=== PATIENT | male | born 1960 | race Asian ===

== ENCOUNTER 2021-04-11 10:16 | Outpatient (REF) | payer OTHER, SELFPAY ==
[2021-04-11 10:22] LABS: MANUAL DIFF FLAG NO
[2021-04-11 10:50] LABS: Basophils Absolute Auto 0.1 X10*3/uL (0.0-0.2); Basophils Percent Auto 1.1 % (0-2); Eosinophils Absolute Auto 0.1 X10*3/uL (0.0-0.4); Eosinophils Percent Auto 1.6 % (0-4); Estimated Average Glucose 166 mg/dL; Hematocrit 44.4 % (42-52); Hemoglobin 14.3 g/dl (14.0-18.0); Hemoglobin A1c % 7.4 %; Imm Gran Abs Auto 0.01 X10*3/uL (0.00-0.03); Imm Gran Pct Auto 0.2 % (0.0-0.4); Lymphocytes Percent Auto 31.7 % (20-40); Mean Corpuscular HGB Conc 32.2 g/dl (31.0-36.0); Mean Corpuscular Hemoglobin 30.2 pg (27.0-33.0); Mean Corpuscular Volume 93.7 fL (80-98); Mean Platelet Volume 10.5 fL (9.4-12.4); Monocytes Absolute Auto 0.5 X10*3/uL (0.1-1.2); Monocytes Percent Auto 8.7 % (2-11); Neutrophils Absolute Auto 3.5 X10*3/uL (2.0-8.3); Neutrophils Percent Auto 56.7 % (45-73); Platelet Count 308 X10*3/uL (160-400); Red Blood Count 4.74 X10*6/uL (4.60-5.80); Red Cell Distribution Width 13.9 % (11.0-16.0); White Blood Count 6.2 X10*3/uL (4.8-10.8)
[2021-04-11 11:04] LABS: Glucose Urine UA >=1000 MG/DL (NEG); Leukocyte Esterase Urine NEG (NEG); Nitrite Urine NEG (NEG); Urine Blood NEG (NEG); Urine Ketones 5 MG/DL (NEG); Urine Protein NEG (NEG-TRACE)
[2021-04-11 11:08] LABS: Appearance Urine CLEAR; Color Urine YELLOW
[2021-04-11 11:22] LABS: RBC Urine 0-2 /HPF (0); Squamous Epithelial Cell Urine TRACE /LPF; WBC Urine 0 /HPF (0-4)
[2021-04-11 11:34] LABS: Creatinine Urine 62.17 mg/dL; Microalbum/Creatinine Ratio Ur 32.1 ug/mg cr
[2021-04-11 12:01] LABS: Alanine Aminotransferase 17 U/L (0-40); Albumin Level 4.6 g/dL (3.5-5.0); Alkaline Phosphatase 70 U/L (39-117); Anion Gap 16 (12-20); Aspartate Amino Transferase 15 U/L (5-37); Bilirubin Total 0.9 mg/dL (0.0-1.0); Blood Urea Nitrogen 22 mg/dL (9-16); Calcium 9.5 mg/dL (8.4-10.2); Carbon Dioxide 24 mmol/L (22-29); Chloride 105 mmol/L (96-108); Cholesterol 170 mg/dL; Estimated Glomerular Filt Rate > 60; Glucose Fasting 129 mg/dL (60-99); HDL Cholesterol 67 mg/dL; LDL Cholesterol Calculated 87 mg/dl; Potassium 4.1 mmol/L (3.3-5.1); Sodium 141 mmol/L (135-145); Triglycerides 81 mg/dL
[2021-04-11 12:07] LABS: Reflex LDLD? No
[2021-04-11 12:08] LABS: PSA,Total (Free>4and<10) 1.02 ng/mL (0.00-4.00); Vitamin D 25-OH Total 29.1 ng/mL (>30)
== END 2021-04-11 10:17 | disposition home or self-care (01) ==
LOC: HO.LNP 10:16
PROVIDERS: Visit Provider Internal Medicine
DX: Z00.00 Encounter for general adult medical examination without abnormal findings (principal); Z12.5 Encounter for screening for malignant neoplasm of prostate; E11.9 Type 2 diabetes mellitus without complications; E78.00 Pure hypercholesterolemia, unspecified; I10 Essential (primary) hypertension
CPT/HCPCS: 80053; 80061; 81001; 81003; 82043; 82306; 83036; 84153; 85025

== ENCOUNTER 2021-09-26 14:09 | Outpatient (REF) | payer OTHER, SELFPAY ==
[2021-09-26 14:34] LABS: Estimated Average Glucose 200 mg/dL; Hemoglobin A1c % 8.6 %
[2021-09-26 14:51] LABS: Alanine Aminotransferase 21 U/L (0-40); Albumin Level 4.5 g/dL (3.5-5.0); Alkaline Phosphatase 65 U/L (39-117); Aspartate Amino Transferase 16 U/L (5-37); Bilirubin Direct 0.3 mg/dL (0.0-0.5); Bilirubin Total 0.8 mg/dL (0.0-1.0); Blood Urea Nitrogen 22 mg/dL (9-16); Cholesterol 191 mg/dL; Estimated Glomerular Filt Rate > 60; Glucose Fasting 124 mg/dL (60-99); HDL Cholesterol 61 mg/dL; LDL Cholesterol Calculated 113 mg/dl; Total Protein 6.9 g/dL (6.5-8.0); Triglycerides 85 mg/dL
[2021-09-26 16:08] LABS: Reflex LDLD? No
== END 2021-09-26 14:10 | disposition home or self-care (01) ==
LOC: HO.LNP 14:09
PROVIDERS: Visit Provider Internal Medicine
DX: E78.00 Pure hypercholesterolemia, unspecified (principal); E11.9 Type 2 diabetes mellitus without complications; I10 Essential (primary) hypertension
CPT/HCPCS: 80061; 80076; 82565; 82947; 83036; 84520

== ENCOUNTER 2021-12-07 09:56 | Day surgery (SDC) | payer OTHER, SELFPAY ==
[2021-11-30 14:04] VITALS: BMI 22.4
--- NOTE | 2021-12-06 14:17 | HO.ANESPROP2 ---
Documented by User: Marlena Philippe NP 12/06/21 14:18 HPI - Anesthesia Eval Consult details Narrative: 61yo M for Colonoscopy [facility] Past Medical History Medical History (Updated 11/30/21 @ 14:04 by Maria Antonia Jaramillo, GWEN) Asthma, mild Diabetes mellitus Hyperlipemia Hypertension Renal calculi Surgical History Surgical History (Updated 11/30/21 @ 14:03 by Maria Antonia Jaramillo RN) History of lithotripsy Hx of colonoscopy [place] teeth extracted Social History Social History Are you a primary healthcare business analyst to a significant other at home: No Do you presently have visiting nurse or other home services: No Patient Tobacco Use Status: Never used Tobacco Are you DNR?: No Advance Directives: No Advance Directives Information Provided: Yes Advance Directives on File: No Recently lost weight without trying: No Meds Allergies Allergy/AdvReac Type Severity Reaction Status Date / Time No Known Allergies Allergy Verified 11/30/21 14:03 Home Medications Medication Instructions Recorded Confirmed Last Taken Type aspirin 81 mg tablet,delayed 81 mg PO DAILY 11/30/21 11/30/21 11/30/21 History release canagliflozin 150 mg-metformin 1 tab PO BID 11/30/21 11/30/21 Unknown History 1,000 mg tablet (Invokamet) cyanocobalamin (vitamin B-12) 100 100 mcg PO DAILY 11/30/21 11/30/21 Unknown History mcg tablet (Vitamin B-12) glucosamine ml PO 11/30/21 Unknown History HCl-methylsulfonylmethane 1,500 mg-500 mg/30 mL liquid magnesium 200 mg tablet 200 mg PO DAILY 11/30/21 11/30/21 Unknown History rosuvastatin 40 mg tablet 40 mg PO DAILY 11/30/21 11/30/21 Unknown History sitagliptin 50 mg tablet (Januvia) 50 mg PO DAILY 11/30/21 11/30/21 Unknown History valsartan 80 mg tablet 80 mg PO DAILY 11/30/21 11/30/21 12/07/21 History vitamin A-vitamin C-vit E-min 1 tab PO DAILY 11/30/21 11/30/21 Unknown History tablet Exam Exam Date and Time: December 06, 2021 1417 Height,Weight and Vital Signs: Height 5 ft 6 in Weight 63.049 kg Pertinent Lab Results Pertinent Lab Results: Laboratory Tests 04/11/21 04/11/21 09/26/21 07:40 07:40 10:40 WBC 6.2 Hgb 14.3 Hct 44.4 Plt Count 308 Sodium 141 Potassium 4.1 Chloride 105 Carbon Dioxide 24 BUN 22 H Creatinine 0.87 Assessment and Plan Assessment Anesthesia Assessment: Chart Reviewed Documented by User: Rudy Munguia MD 12/08/21 21:47 [facility] Past Medical History Medical History (Updated 11/30/21 @ 14:04 by Maria Antonia Jaramillo RN) Asthma, mild Diabetes mellitus Hyperlipemia Hypertension Renal calculi Family History Family history of problems with anesthesia: No Surgical History Surgical History (Updated 11/30/21 @ 14:03 by Maria Antonia Jaramillo RN) History of lithotripsy Hx of colonoscopy [place] teeth extracted History of Problems with Anesthesia: No Social History Social History Are you a primary healthcare business analyst to a significant other at home: No Do you presently have visiting nurse or other home services: No Patient Tobacco Use Status: Never used Tobacco Are you DNR?: No Advance Directives: No Advance Directives Information Provided: Yes Advance Directives on File: No Recently lost weight without trying: No Meds Allergies Allergy/AdvReac Type Severity Reaction Status Date / Time No Known Allergies Allergy Verified 11/30/21 14:03 Home Medications Medication Instructions Recorded Confirmed Last Taken Type aspirin 81 mg tablet,delayed 81 mg PO DAILY 11/30/21 11/30/21 11/30/21 History release canagliflozin 150 mg-metformin 1 tab PO BID 11/30/21 11/30/21 Unknown History 1,000 mg tablet (Invokamet) cyanocobalamin (vitamin B-12) 100 100 mcg PO DAILY 11/30/21 11/30/21 Unknown History mcg tablet (Vitamin B-12) glucosamine ml PO 11/30/21 Unknown History HCl-methylsulfonylmethane 1,500 mg-500 mg/30 mL liquid magnesium 200 mg tablet 200 mg PO DAILY 11/30/21 11/30/21 Unknown History rosuvastatin 40 mg tablet 40 mg PO DAILY 11/30/21 11/30/21 Unknown History sitagliptin 50 mg tablet (Januvia) 50 mg PO DAILY 11/30/21 11/30/21 Unknown History valsartan 80 mg tablet 80 mg PO DAILY 11/30/21 11/30/21 12/07/21 History vitamin A-vitamin C-vit E-min 1 tab PO DAILY 11/30/21 11/30/21 Unknown History tablet Exam Airway Mallampati Class: III TM Dist: >3cm Neck ROM: Full Loose/Missing/Broken Teeth: Yes (Implants ) Heart: rrr Lungs: bl breath sounds Assessment and Plan Assessment Anesthesia Assessment: Anesthesia Plan Discussed Final Anesthetic Review Family History of Problems with Anesthesia: No History of Problems with Anesthesia: No NPO: Yes ASA Class: II Final Preanesthetic Review: Meds/Allgs Chart Reviewed and Anes Risks/Benef Reviewed Patient Risk: Intermediate Procedure Risk: Intermediate Anesthetic Plan Anesthetic Plan: MAC: Disposition: Standard PACU
[2021-12-07 09:59] VITALS: BP 118/77; PULSE 99; RESP 17; TEMP 36.1; O2SAT 98
[2021-12-07 10:14] LABS: Glucose, Whole Blood 84 mg/dL (60-115)
[2021-12-07] MEDS: Lactated Ringers 1,000 ML 100 ML IVCONT (10:32)
--- NOTE | 2021-12-07 13:17 | P.BOP_ITS ---
Brief Operative Note Date of Service: 12/07/21 Pre-op diagnosis: Screening Post-op diagnosis: other (Colon polyps) Procedure: Colonoscopy to the cecum with hot snare polypectomy and clip x 1 at 25cm, cold snare polypectomy x 2 in TC, and bx/removal of polyp at 60cm Surgeon: Francisco Noguera Anesthesia: MAC Was an Labor Crew Supervisor used for this Procedure?: No Estimated blood loss (mL): 2.0 Pathology: other (A. Polyp at 60cm B. Transverse colon polyps C. Polyp at 25cm) Condition: stable Disposition: PACU
[2021-12-07 13:20] VITALS: BP 85/74; PULSE 79; RESP 17; TEMP 36.1; O2SAT 100
[2021-12-07 13:35] VITALS: BP 88/64; PULSE 73; RESP 18; TEMP 36.4; O2SAT 100
[2021-12-07 13:50] VITALS: BP 99/64; PULSE 73; RESP 20; O2SAT 100
--- NOTE | 2021-12-08 08:57 | OP_ITS ---
SURGEON: Francisco Noguera MD INDICATIONS: The patient presents for evaluation of colorectal cancer screening. Full consent obtained from him for this, including risks of bleeding and perforation. PREOPERATIVE DIAGNOSIS: Colon cancer screening. POSTOPERATIVE DIAGNOSIS: PROCEDURE PERFORMED: Colonoscopy to the cecum and terminal ileum with biopsy and removal of polyps, and hot snare polypectomy. ESTIMATED BLOOD LOSS: COMPLICATIONS: ANESTHESIA: Monitored anesthesia care. ASSISTANTS: SPECIMENS: POSTOPERATIVE DIAGNOSES: Colon cancer screening, colon polyps, diverticulosis and internal hemorrhoids. DESCRIPTION OF PROCEDURE: The patient was placed in the left lateral decubitus position. Digital rectal exam revealed no abnormalities. The Olympus video pediatric colonoscope was entered into the rectum and advanced easily to the cecum. Once in the cecum, I did identify normal-appearing cecal pouch with appendiceal orifice, a normal-appearing ileocecal valve. The terminal ileum was cannulated and appeared normal. Scope withdrawn back from the colon. The entire cecum and ileocecal valve appeared normal. The scope was slowly withdrawn assessing all mucosal surfaces carefully. Preparation was excellent. In the transverse colon were 2 approximately 6 mm flat, but slightly raised polyps which were easily removed by cold snare polypectomy and recovered by suction. The polypectomy sites appeared clean, without any sign of residual polyp nor significant bleeding. At 60 cm was an approximately 3 mm polyp, which was biopsied and removed completely with cold biopsy forceps. At 25 cm was an approximately 1.5 cm polyp on a stalk, which was removed by hot snare polypectomy and recovered by withdrawing on the tip of the colonoscope. The scope was withdrawn back from the polypectomy site, which appeared clean, without any sign of residual polyp nor bleeding. A single Resolution clip was applied with good deployment and good hemostasis. There was a mild amount of sigmoid diverticulosis. In the rectum, scope was retroflexed visualizing internal hemorrhoids, but no other pathology. The rectal mucosa appeared normal. Scope was straightened and withdrawn from the patient. He tolerated the procedure well and was returned to recovery area in stable condition. IMPRESSION: 1. Colon polyps, status post hot snare polypectomy with placement of Resolution clip, and biopsy and removal of polyps. 2. Diverticulosis. 3. Internal hemorrhoids. PLAN: The results of the pathology will be checked. I would recommend a repeat colonoscopy in 5 years for further surveillance. He was advised not to use any aspirin and NSAIDs for 1 week. He will otherwise see me on a p.r.n. basis. This has been discussed with his . MD TAWNYA Salter/CHARLIE / [id number]
== END 2021-12-07 14:29 | disposition home or self-care (01) ==
PROVIDERS: PCP Internal Medicine; Visit Provider Internal Medicine
PROC: 0DJD8ZZ Inspection of Lower Intestinal Tract, Via Natural or Artificial Opening Endoscopic (ICD-10-PCS; CPT 45378; principal; 2021-12-07 11:20)
DX: Z12.11 Encounter for screening for malignant neoplasm of colon (principal); D12.3 Benign neoplasm of transverse colon; D12.5 Benign neoplasm of sigmoid colon; K63.5 Polyp of colon; K57.30 Diverticulosis of large intestine without perforation or abscess without bleeding; K64.8 Other hemorrhoids; I10 Essential (primary) hypertension; E78.5 Hyperlipidemia, unspecified; E11.9 Type 2 diabetes mellitus without complications; Z79.84 Long term (current) use of oral hypoglycemic drugs; Z79.82 Long term (current) use of aspirin; Z79.899 Other long term (current) drug therapy
CPT/HCPCS: 45385; 45380; 82947; 88305

== ENCOUNTER 2022-04-18 11:16 | Outpatient (REF) | payer OTHER, SELFPAY ==
[2022-04-18 11:19] LABS: MANUAL DIFF FLAG NO
[2022-04-18 11:35] LABS: Appearance Urine CLEAR; Color Urine YELLOW; Glucose Urine UA >=1000 MG/DL (NEG); Leukocyte Esterase Urine NEG (NEG); Nitrite Urine NEG (NEG); PH 5.5 (5.0-8.0); Urine Blood NEG (NEG); Urine Ketones 15 MG/DL (NEG); Urine Protein NEG (NEG-TRACE)
[2022-04-18 11:37] LABS: Basophils Absolute Auto 0.1 X10*3/uL (0.0-0.2); Eosinophils Absolute Auto 0.1 X10*3/uL (0.0-0.4); Eosinophils Percent Auto 1.4 % (0-4); Hematocrit 41.9 % (42.0-52.0); Hemoglobin 13.7 g/dl (14.0-18.0); Lymphocytes Absolute Auto 1.4 X10*3/uL (1.2-4.9); Lymphocytes Percent Auto 28.6 % (20-40); Mean Corpuscular HGB Conc 32.7 g/dl (31.0-36.0); Mean Corpuscular Hemoglobin 29.8 pg (27.0-33.0); Mean Corpuscular Volume 91.3 fL (80.0-98.0); Mean Platelet Volume 10.5 fL (9.4-12.4); Monocytes Absolute Auto 0.4 X10*3/uL (0.1-1.2); Monocytes Percent Auto 8.7 % (2-11); Neutrophils Absolute Auto 2.9 x10*3/uL (2.0-8.3); Neutrophils Percent Auto 60.3 % (45-73); Platelet Count 240 X10*3/uL (160-400); Red Blood Count 4.59 X10*6/uL (4.60-5.80); Red Cell Distribution Width 13.3 % (11.0-16.0); White Blood Count 4.8 X10*3/uL (4.8-10.8)
[2022-04-18 11:45] LABS: Alanine Aminotransferase 15 U/L (0-40); Albumin Level 4.4 g/dL (3.5-5.0); Alkaline Phosphatase 65 U/L (39-117); Anion Gap 15 (12-20); Aspartate Amino Transferase 16 U/L (5-37); Bilirubin Total 0.8 mg/dL (0.0-1.0); Blood Urea Nitrogen 25 mg/dL (9-16); Calcium 9.1 mg/dL (8.4-10.2); Carbon Dioxide 20 mmol/L (22-29); Chloride 105 mmol/L (96-108); Cholesterol 217 mg/dL; Estimated Glomerular Filt Rate > 60; Glucose Fasting 90 mg/dL (60-99); HDL Cholesterol 62 mg/dL; LDL Cholesterol Calculated 141 mg/dl; Potassium 4.4 mmol/L (3.3-5.1); Sodium 136 mmol/L (135-145); Total Protein 6.8 g/dL (6.5-8.0); Triglycerides 70 mg/dL
[2022-04-18 11:56] LABS: RBC Urine 0 /HPF (0); WBC Urine 0-2 /HPF (0-4)
[2022-04-18 11:57] LABS: Squamous Epithelial Cell Urine TRACE /LPF
[2022-04-18 12:22] LABS: Estimated Average Glucose 180 mg/dL; Hemoglobin A1c % 7.9 %
[2022-04-18 12:45] LABS: Creatinine Urine 55.36 mg/dL; Microalbum/Creatinine Ratio Ur 12.6 ug/mg cr
== END 2022-04-18 11:17 | disposition home or self-care (01) ==
LOC: HO.LNP 11:16
PROVIDERS: Visit Provider Internal Medicine
DX: Z00.00 Encounter for general adult medical examination without abnormal findings (principal); Z12.5 Encounter for screening for malignant neoplasm of prostate; E11.9 Type 2 diabetes mellitus without complications; I10 Essential (primary) hypertension; E78.00 Pure hypercholesterolemia, unspecified
CPT/HCPCS: 80053; 80061; 81001; 82043; 83036; 84153; 85025

== ENCOUNTER 2022-10-27 10:30 | Outpatient (REF) | payer OTHER, SELFPAY ==
[2022-10-27 11:09] LABS: Alanine Aminotransferase 21 U/L (0-40); Albumin Level 4.5 g/dL (3.5-5.0); Alkaline Phosphatase 90 U/L (39-117); Aspartate Amino Transferase 17 U/L (5-37); Bilirubin Direct 0.2 mg/dL (0.0-0.5); Bilirubin Total 0.8 mg/dL (0.0-1.0); Cholesterol 177 mg/dL; Glucose Fasting 121 mg/dL (60-99); HDL Cholesterol 57 mg/dL; LDL Cholesterol Calculated 102 mg/dl; Triglycerides 93 mg/dL
[2022-10-27 11:55] LABS: Estimated Average Glucose 209 mg/dL; Hemoglobin A1c % 8.9 %
[2022-10-27 13:01] LABS: Reflex LDLD? No
== END 2022-10-27 10:31 | disposition home or self-care (01) ==
LOC: HO.LNP 10:30
PROVIDERS: Visit Provider Internal Medicine
DX: E11.9 Type 2 diabetes mellitus without complications (principal); E78.00 Pure hypercholesterolemia, unspecified
CPT/HCPCS: 80061; 80076; 82947; 83036

== ENCOUNTER 2023-07-09 11:22 | Outpatient (REF) | payer OTHER, SELFPAY ==
[2023-07-09 11:26] LABS: MANUAL DIFF FLAG NO
[2023-07-09 11:52] LABS: Basophils Absolute Auto 0.1 X10*3/uL (0.0-0.2); Basophils Percent Auto 1.7 % (0-2); Eosinophils Percent Auto 0.6 % (0-4); Hematocrit 41.9 % (42.0-52.0); Hemoglobin 13.8 g/dl (14.0-18.0); Lymphocytes Absolute Auto 1.3 X10*3/uL (1.2-4.9); Lymphocytes Percent Auto 27.9 % (20-40); Mean Corpuscular HGB Conc 32.9 g/dl (31.0-36.0); Mean Corpuscular Hemoglobin 30.7 pg (27.0-33.0); Mean Corpuscular Volume 93.3 fL (80.0-98.0); Mean Platelet Volume 10.6 fL (9.4-12.4); Monocytes Absolute Auto 0.5 X10*3/uL (0.1-1.2); Monocytes Percent Auto 11.2 % (2-11); Neutrophils Absolute Auto 2.7 x10*3/uL (2.0-8.3); Neutrophils Percent Auto 58.6 % (45-73); Platelet Count 251 X10*3/uL (160-400); Red Blood Count 4.49 X10*6/uL (4.60-5.80); Red Cell Distribution Width 13.7 % (11.0-16.0); White Blood Count 4.7 X10*3/uL (4.8-10.8)
[2023-07-09 12:02] LABS: Appearance Urine Clear; Color Urine Yellow; Glucose Urine UA >=1000 mg/dL (Negative); Leukocyte Esterase Urine Negative (Negative); Nitrite Urine Negative (Negative); PH 5.5 (5.0-9.0); Specific Gravity - Urine >= 1.030 (1.005-1.025); UMIC TRIGGER UACC YES; Urine Blood Negative (Negative); Urine Ketones 15 mg/dL (Negative); Urine Protein Negative (Neg-Trace)
[2023-07-09 12:07] LABS: Bacteria Urine None Seen (None Seen); RBC Urine 0-2 /HPF (0-2); Squamous Epithelial Cell Urine 0-2 /HPF (0-2); WBC Urine 0-5 /HPF (0-5)
[2023-07-09 12:41] LABS: Estimated Average Glucose 151 mg/dL; Hemoglobin A1c % 6.9 % (<6.0)
[2023-07-09 12:59] LABS: Alanine Aminotransferase 17 U/L (0-40); Albumin Level 4.3 g/dL (3.5-5.0); Alkaline Phosphatase 54 U/L (39-117); Anion Gap 13 (12-20); Aspartate Amino Transferase 17 U/L (5-37); Bilirubin Total 0.9 mg/dL (0.0-1.0); Blood Urea Nitrogen 17 mg/dL (9-16); Calcium 9.8 mg/dL (8.4-10.2); Carbon Dioxide 25 mmol/L (22-29); Chloride 105 mmol/L (96-108); Cholesterol 176 mg/dL (<200); Estimated Glomerular Filt Rate > 60; Glucose Fasting 112 mg/dL (60-99); HDL Cholesterol 68 mg/dL (>40); LDL Cholesterol Calculated 98 mg/dL (<100); Potassium 4.1 mmol/L (3.3-5.1); Sodium 139 mmol/L (135-145); Total Protein 6.9 g/dL (6.5-8.0); Triglycerides 50 mg/dL (<150)
[2023-07-09 13:13] LABS: PSA,Total (Free>4and<10) 1.58 ng/mL (0.00-4.00)
[2023-07-09 13:58] LABS: Creatinine Urine 71.99 mg/dL; Microalbum/Creatinine Ratio Ur 26.3 ug/mg cr (<30)
== END 2023-07-09 11:23 | disposition home or self-care (01) ==
LOC: HO.LNP 11:22
PROVIDERS: Visit Provider Internal Medicine
DX: Z00.00 Encounter for general adult medical examination without abnormal findings (principal); Z12.5 Encounter for screening for malignant neoplasm of prostate; E11.9 Type 2 diabetes mellitus without complications; E78.00 Pure hypercholesterolemia, unspecified; I10 Essential (primary) hypertension
CPT/HCPCS: 80053; 80061; 81001; 82043; 82570; 83036; 84153; 85025

== ENCOUNTER 2024-01-18 10:54 | Outpatient (REF) | payer OTHER, SELFPAY ==
[2024-01-18 12:27] LABS: Estimated Average Glucose 186 mg/dL; Hemoglobin A1c % 8.1 % (<6.0)
[2024-01-18 12:31] LABS: Alanine Aminotransferase 27 U/L (0-40); Albumin Level 4.6 g/dL (3.5-5.0); Alkaline Phosphatase 81 U/L (39-117); Aspartate Amino Transferase 44 U/L (5-37); Bilirubin Direct 0.3 mg/dL (0.0-0.5); Bilirubin Total 0.7 mg/dL (0.0-1.0); Cholesterol 152 mg/dL (<200); Glucose Fasting 131 mg/dL (60-99); HDL Cholesterol 61 mg/dL (>40); LDL Cholesterol Calculated 76 mg/dL (<100); Total Protein 7.5 g/dL (6.5-8.0); Triglycerides 75 mg/dL (<150)
[2024-01-18 12:34] LABS: Reflex LDLD? No
== END 2024-01-18 10:55 | disposition home or self-care (01) ==
LOC: HO.LNP 10:54
PROVIDERS: Visit Provider Internal Medicine
DX: E11.9 Type 2 diabetes mellitus without complications (principal); E78.00 Pure hypercholesterolemia, unspecified
CPT/HCPCS: 80061; 80076; 82947; 83036

== ENCOUNTER 2024-07-10 11:17 | Outpatient (REF) | payer OTHER, SELFPAY ==
[2024-07-10 11:22] LABS: MANUAL DIFF FLAG NO
[2024-07-10 11:36] LABS: Basophils Absolute Auto 0.1 X10*3/uL (0.0-0.2); Basophils Percent Auto 1.6 % (0-2); Eosinophils Absolute Auto 0.1 X10*3/uL (0.0-0.4); Eosinophils Percent Auto 1.3 % (0-4); Hematocrit 40.9 % (42.0-52.0); Hemoglobin 13.7 g/dl (14.0-18.0); Imm Gran Abs Auto 0.01 X10*3/uL (0.00-0.03); Imm Gran Pct Auto 0.2 % (0.0-0.4); Lymphocytes Absolute Auto 1.5 X10*3/uL (1.2-4.9); Lymphocytes Percent Auto 32.7 % (20-40); Mean Corpuscular HGB Conc 33.5 g/dl (31.0-36.0); Mean Corpuscular Hemoglobin 30.6 pg (27.0-33.0); Mean Corpuscular Volume 91.5 fL (80.0-98.0); Mean Platelet Volume 10.7 fL (9.4-12.4); Monocytes Absolute Auto 0.5 X10*3/uL (0.1-1.2); Monocytes Percent Auto 10.1 % (2-11); Neutrophils Absolute Auto 2.4 x10*3/uL (2.0-8.3); Neutrophils Percent Auto 54.1 % (45-73); Platelet Count 240 X10*3/uL (160-400); Red Blood Count 4.47 X10*6/uL (4.60-5.80); Red Cell Distribution Width 12.9 % (11.0-16.0); White Blood Count 4.5 X10*3/uL (4.8-10.8)
[2024-07-10 11:45] LABS: Estimated Average Glucose 203 mg/dL; Hemoglobin A1c % 8.7 % (<6.0)
[2024-07-10 12:05] LABS: Appearance Urine Clear; Color Urine Yellow; Glucose Urine UA >=1000 mg/dL (Negative); Leukocyte Esterase Urine Negative (Negative); Nitrite Urine Negative (Negative); PH 5.5 (5.0-9.0); Specific Gravity - Urine >= 1.030 (1.005-1.025); UMIC TRIGGER UACC YES; Urine Blood Negative (Negative); Urine Ketones 15 mg/dL (Negative); Urine Protein Trace mg/dL (Neg-Trace)
[2024-07-10 12:12] LABS: Alanine Aminotransferase 18 U/L (0-40); Albumin Level 4.1 g/dL (3.5-5.0); Alkaline Phosphatase 63 U/L (39-117); Anion Gap 13 (12-20); Aspartate Amino Transferase 18 U/L (5-37); Bilirubin Total 0.8 mg/dL (0.0-1.0); Blood Urea Nitrogen 26 mg/dL (9-16); Calcium 9.4 mg/dL (8.4-10.2); Carbon Dioxide 25 mmol/L (22-29); Chloride 106 mmol/L (96-108); Cholesterol 158 mg/dL (<200); Estimated Glomerular Filt Rate > 60; Glucose Fasting 123 mg/dL (60-99); HDL Cholesterol 63 mg/dL (>40); LDL Cholesterol Calculated 82 mg/dL (<100); Sodium 140 mmol/L (135-145); Total Protein 6.6 g/dL (6.5-8.0); Triglycerides 69 mg/dL (<150)
[2024-07-10 12:13] LABS: Bacteria Urine None Seen (None Seen); Hyaline Casts Urine 0-2 /LPF (0-2); RBC Urine 0-2 /HPF (0-2); Squamous Epithelial Cell Urine 0-2 /HPF (0-2); WBC Urine 0-5 /HPF (0-5)
[2024-07-10 12:14] LABS: PSA,Total (Free>4and<10) 1.37 ng/mL (0.00-4.00)
[2024-07-10 12:23] LABS: Creatinine Urine 50.29 mg/dL; Microalbum/Creatinine Ratio Ur 93.4 ug/mg cr (<30)
== END 2024-07-10 11:18 | disposition home or self-care (01) ==
LOC: HO.LNP 11:17
PROVIDERS: Visit Provider Internal Medicine
DX: Z00.00 Encounter for general adult medical examination without abnormal findings (principal); E11.9 Type 2 diabetes mellitus without complications; I10 Essential (primary) hypertension; E78.00 Pure hypercholesterolemia, unspecified
CPT/HCPCS: 80053; 80061; 81001; 82043; 82570; 83036; 84153; 85025

== ENCOUNTER 2025-01-08 10:53 | Outpatient (REF) | payer OTHER, SELFPAY ==
[2025-01-08 11:49] LABS: Alanine Aminotransferase 23 U/L (0-40); Albumin Level 4.4 g/dL (3.5-5.0); Alkaline Phosphatase 94 U/L (39-117); Aspartate Amino Transferase 30 U/L (5-37); Bilirubin Direct 0.2 mg/dL (0.0-0.5); Bilirubin Total 0.6 mg/dL (0.0-1.0); Cholesterol 221 mg/dL (<200); Glucose Fasting 119 mg/dL (60-99); HDL Cholesterol 59 mg/dL (>40); LDL Cholesterol Calculated 138 mg/dL (<100); Total Protein 7.8 g/dL (6.5-8.0); Triglycerides 121 mg/dL (<150)
[2025-01-08 11:50] LABS: Estimated Average Glucose 169 mg/dL; Hemoglobin A1c % 7.5 % (<6.0)
[2025-01-08 12:53] LABS: Reflex LDLD? No
== END 2025-01-08 10:54 | disposition home or self-care (01) ==
LOC: HO.LNP 10:53
PROVIDERS: Visit Provider Internal Medicine
DX: E11.9 Type 2 diabetes mellitus without complications (principal); E78.00 Pure hypercholesterolemia, unspecified
CPT/HCPCS: 80061; 80076; 82947; 83036

== ENCOUNTER 2025-07-14 10:43 | Outpatient (REF) | payer OTHER, SELFPAY ==
--- OUTSIDE RECORDS SUMMARY | 2023-04-17 19:36 | XMS_ITS | Encounter Summary ---
Author Organization [facility] Address [address] [facility] [address] [place] [address] Phone Care Team Providers Care Colorist Dyer Name Role Phone Pete Aguirre MD Primary Care Provider Encounter Details Date Type Department Care Team (Late st Contact Info) Description 04/17/2023 7:36 PM EDT Hospital Encounter [facility] [address] [place] [id number] Aurora Monique FNP [address] [place] [id number] [email or web address] Social History Tobacco Use Types Packs/Day Years Used Date Smoking Tobacco: Never Smokeless Tobacco: Never Education Answer Date Recorded Are you interested in more education? Not on susan e 04/17/2023 Are you concerned about learning? Not on file 04/17/2023 No 04/17/2023 No 04/17/2023 Digital Access Answer Date Recorded No 04/17/2023 No 04/17/2023 Reliable internet access at home? Not on file 04/17/2023 Device with a working camera? Not on file Sex and Gender Information Value Date Recorded Sex Assigned at Not on file Legal Sex Male 6:49 PM EDT Gender Identity Not on file Sexual Orientation Not on file documented as of this encounter Plan of Treatment Not on file documented as of this encounter Procedures Procedure Name Priority Date/Time Associated Diagnosis Comments XR TIBIA FIBULA 2 VIEWS (LEFT) Urgent/patient waiting 04/17/2023 7:43 PM EDT Fall, initial encounter documented in this encounter Results * XR Tibia Fibula 2 Views (Left) (04/17/2023 7:43 PM EDT) Anatomical Region Laterality Modality Leg Left Computed Radiogr aphy 04/17/2023 7:51 PM EDT Impressions 04/17/2023 7:52 PM EDT No acute fracture or malalignment of the tibia/fibula or left ankle. Narrative 04/17/2023 7:52 PM EDT XR TIBIA FIBULA 2 VIEWS (LEFT), XR ANKLE 3 OR MORE VIEWS (LEFT) COMPARISON: None FINDINGS: No acute fracture or suspicious osseus lesion. Well-corticated ossific density inferior to the fibula, likely sequelae of remote injury. Alignment is standard. The joint spaces are congruent. No unexpected radiopaque foreign body or soft tissue gas identified. Diffuse ankle soft tissue swelling. Procedure Note Clay Hector MD - 04/17/2023 XR TIBIA FIBULA 2 VIEWS (LEFT), XR ANKLE 3 OR MORE VIEWS (LEFT) COMPARISON: None FINDINGS: No acute fracture or suspicious osseus lesion. Well-corticated ossificdensity inferior to the fibula, likely sequelae of remote injury. Alignment is standard. The joint spaces are congruent. No unexpected radiopaque foreign body or soft tissue gas identified.Diffuse ankle soft tissue swelling. IMPRESSION: No acute fracture or malalignment of the tibia/fibula or left ankle. Aurora Monique ACCOUNTING BOOKKEEPER IMG XR LOWER EXTREMITY Yuly l Result documented in this encounter Visit Diagnoses Not on filedocumented in this encounter Care Teams Colorist Dyer Relationship Specialty Start Date End Date Pete Aguirre MD [address] [place] [address] [place], [place] [address] PCP - General Internal Medicine 04/17/23 documented as of this encounter Additional Source Comments The information contained in this document represents components of the legal health record. It is not the complete legal health record.[facility]
--- OUTSIDE RECORDS SUMMARY | 2023-04-17 19:40 | XMS_ITS | Encounter Summary ---
Author Organization [facility] Address [address] [facility] [address] [place] [address] Phone Care Team Providers Care Graduate Assistant Name Role Phone Pete Aguirre MD Primary Care Provider Encounter Details Date Type Department Care Team (Late st Contact Info) Description 04/17/2023 7:40 PM EDT Hospital Encounter [facility] [address] [place] [address] Aurora Monique FNP [address] [place] [address] [email or web address] Social History Tobacco Use Types Packs/Day Years [...] Name Priority Date/Time Associated Diagnosis Comments XR ANKLE 3 OR MORE VIEWS (LEFT) Urgent/patient waiting 04/17/2023 7:45 PM EDT Fall, initial encounter documented in this encounter Results * XR ANKLE 3 OR MORE VIEWS (LEFT) (04/17/2023 7:45 PM EDT) Anatomical Region Laterality Modality Ankle Left Computed Radiogr aphy 04/17/2023 7:51 PM [...] the tibia/fibula or left ankle. Aurora Monique NAILER OPERATOR IMG XR LOWER EXTREMITY Yuly l Result documented in this encounter Visit Diagnoses Not on filedocumented in this encounter Care Teams Graduate Assistant Relationship Specialty Start Date End Date Pete Aguirre MD [address] [place] [address] Dr [place], [place] [id number] PCP - General Internal Medicine 04/17/23 documented as of this encounter Additional Source Comments The information contained in this document represents components of the legal health record. It is not the complete legal health record.[facility]
--- OUTSIDE RECORDS SUMMARY | 2025-02-19 09:30 | XMS_ITS ---
Author Organization Pete Aguirre MD Address [address] [place], [place] [id number] Care Team Providers Care Camp Counselor Name Role Phone Pete Aguirre Primary Care Provider [phone] Allergies No Known Allergies Results Component Value Reference Range Notes Glucose, finger stick Reviewed date:02/19/2025 01:25:55 PM Interpretation: Performing Lab: Notes/Report: Value 158 REASON FOR VISIT needs to change his DM meds Medications Medication SIG (Take, Route, Frequency, Duration) Notes Start Date End Date Status FreeStyle Lancets - as directed twice a day for 90 days 07/16/2020 Active Fluticasone Propionate 50 MCG/ACT 1 spray in each nostril Nasally Twice a day for 30 day(s) 01/15/2025 Active Tamsulosin HCl 0.4 MG 1 capsule Orally O nce a day for 30 days 01/15/2025 Active FreeStyle Lite Test - as directed In Vit ro daily for 90 Active Glucosamine Chond Complex/MSM - Orally Active Magnesium 200 MG 2 tablets with a eitan l Orally Once a day Active Johnson Low Dose 81 MG 1 tablet Orally Onc e a day Active Vitamin D3 1000 UNIT 1 capsule Orally On ce a day Active ProAir Respiclick (albuterol Sulfate Inhailation Powder) 90 mcg 1 to 2 inhailations by mouth every 4 to 6 hours as needed for 30 days 11/07/2018 Not-Taking Januvia 100 MG TAKE 1 TABLET BY DAVID TH EVERY DAY FOR 90 DAYS Active Valsartan 80 MG TAKE 1 TABLET BY DAVID TH EVERY DAY FOR 30 DAYS Active Rosuvastatin Calcium 40 MG TAKE 1 TABLET BY MOUTH EVERY DAY Active metFORMIN HCl 1000 MG 1 tablet with a me al Orally twice for 90 days 02/19/2025 Active Invokamet 150-1000 MG TAKE 1 TABLET BY M OUTH TWICE A DAY WITH MEALS ORALLY TWICE A DAY 30 DAYS. NEED INSURANCE Orally Twice a day Active Vital Signs Blood pressure systolic 102 mm Hg 02/20/20 25 Blood pressure diastolic 54 mm Hg 025 Height 66.5 in 02/19/2025 Weight 144 lbs 02/19/2025 BMI 22.89 kg/m2 02/19/2025 Encounters Encounter Location Date Provider Diagnosis Pete Aguirre MD [address] [place] [address] Drive [address] [place], [place] [id number] 02/19/2025 Pete Aguirre Type 2 diabetes mellitus without complication, without long-term current use of insulin E11.9 Assessments Encounter Date Diagnosis (ICD Code) Assessment Notes Treatment Notes Treatment Clinical Notes Section Notes 02/19/2025 Type 2 diabetes mellitus without complication, without long-term current use of insulin (ICD-10 - E11.9) patient verbalized understanding of medication and directions for use Plan Of Treatment Medication Medication Name Sig Start Date Stop Date Notes metFORMIN HCl 1000 MG 1 tablet with a me al Orally twice for 90 days 02/19/2025 Treatment Notes Assessment Notes Type 2 diabetes mellitus wit hout complication, without long-term current use of insulin patient verbalized understanding of medication and directions for use Next Appt Details Provider Name:Pete Miller ier, 08/04/2025 02:30:00 PM, [address] [place] [address], [address], [place], [place], [id number], Progress Notes * ALLAN PierreDOB:1960 (65 yo M)Acc No.[id number]:02/19/2025 Progress Notes Patient: Pierre Marshall Provider: Luis Miguel Aguirre MD :1960 A ge:64 Y S ex:Male Date:02/19/2025 Address:[address] [place], [place] [id number] Subjective: * Chief Complaints: * n eeds to change his DM meds * HPI: S ymptom(s): patient is a 64 yo male here to discuss diabetes medication/ starting on new insurance. * ROS: G eneral/Constitutional: Denies Tere soliman. D enies F atigue. D enies F ever. D enies H eadache. E NT: Denies S ore throat. R espiratory: Ann C ough. D ensina S hortness of breath at rest. D ensina S hortness of breath with exertion. G astrointestinal: Ann D iarrhea. D ensina N ausea. * Medical History: * Surgical History: * Hospitalization/Major Diagno stic Procedure: * Medications: T akingMagnesium 200 MG Tablet 2 tablets with a meal Orally Once a day Glucosamine Chond Complex/MSM - Tablet Orally Vitamin D3 1000 UNIT Capsule 1 capsule Orally Once a day Johnson Low Dose 81 MG Tablet Delayed Release 1 tablet Orally Once a day FreeStyle Lite Test - Strip as directed In Vitro daily FreeStyle Lancets - Miscellaneous as directed twice a day Tamsulosin HCl 0.4 MG Capsule 1 capsule Orally Once a day Fluticasone Propionate 50 MCG/ACT Suspension 1 spray in each nostril Nasally Twice a day Valsartan 80 MG Tablet TAKE 1 TABLET BY MOUTH EVERY DAY FOR 30 DAYS Januvia 100 MG Tablet TAKE 1 TABLET BY MOUTH EVERY DAY FOR 90 DAYS Invokamet 150-1000 MG Tablet TAKE 1 TABLET BY MOUTH TWICE A DAY WITH MEALS ORALLY TWICE A DAY 30 DAYS. NEED INSURANCE Orally Twice a day Rosuvastatin Calcium 40 MG Tablet TAKE 1 TABLET BY MOUTH EVERY DAY Taking Magnesium 200 MG Tablet 2 tablets with a meal Orally Once a day Taking Glucosamine Chond Complex/MSM - Tablet Orally Taking Vitamin D3 1000 UNIT Capsule 1 capsule Orally Once a day Taking Johnson Low Dose 81 MG Tablet Delayed Release 1 tablet Orally Once a day Taking FreeStyle Lite Test - Strip as directed In Vitro daily Taking FreeStyle Lancets - Miscellaneous as directed twice a day Taking Tamsulosin HCl 0.4 MG Capsule 1 capsule Orally Once a day Taking Fluticasone Propionate 50 MCG/ACT Suspension 1 spray in each nostril Nasally Twice a day Taking Valsartan 80 MG Tablet TAKE 1 TABLET BY MOUTH EVERY DAY FOR 30 DAYS Taking Januvia 100 MG Tablet TAKE 1 TABLET BY MOUTH EVERY DAY FOR 90 DAYS Taking Invokamet 150-1000 MG Tablet TAKE 1 TABLET BY MOUTH TWICE A DAY WITH MEALS ORALLY TWICE A DAY 30 DAYS. NEED INSURANCE Orally Twice a day Taking Rosuvastatin Calcium 40 MG Tablet TAKE 1 TABLET BY MOUTH EVERY DAY Not-Taking/PRNProAir Respiclick (albuterol Sulfate Inhailation Powder) 90 mcg Inhalation Powder 1 to 2 inhailations by mouth every 4 to 6 hours as needed Not-Taking/PRN ProAir Respiclick (albuterol Sulfate Inhailation Powder) 90 mcg Inhalation Powder 1 to 2 inhailations by mouth every 4 to 6 hours as needed DiscontinuedGinkgo Biloba 60 MG Capsule Orally Medication List reviewed and reconciled with the patientDiscontinued Ginkgo Biloba 60 MG Capsule Orally Medication List reviewed and reconciled with the patient * Allergies: N .K.D.A.yes[Allergies Verified] Objective: * Vitals: H t: 66.5, Wt: 144, BMI:22.89, BP:102/54, Wt-k.32. * Examination: G eneral Examination: GENERAL APPEARANCE: w ell developed, well nourished. HEAD: n ormocephalic. SKIN: g ood turgor. HEART: r egular rate and rhythm, no murmurs, rubs, gallops.? LUNGS: n o wheezes, rales, rhonchi, good air movement, clear to auscultation bilaterally. Assessment: * Assessment: 1. T ype 2 diabetes mellitus without complication, without long-term current use of insulin - E11.9 (Primary) Plan: * Treatment: Value Reference Range V alue 158 Notes: patient verbalized understanding of medication and directions for use?? * Procedure Codes: 8 [id number] ASSAY, GLUCOSE, BLOOD QUANT, Modifiers: QW * * Sign off status: Completed true * Provider: Luis Miguel Aguirre MD Date: 02/19/2025 Generated for Tommie mosley/Oscar/Joshsmitting on: 07/14/2025 01:09 PM EDT History and Physical Notes * HPI (History of Present Illness) Category Sub-Category Detail Notes Category Not es Symptom(s) patient is a 64 yo male here to discuss diabetes medication/ starting on new insurance. Examination Category Sub-Category Detail Notes Category Not es General Examination GENERAL APPEARANCE: well developed , well nourished HEAD: normocephalic HEART: regular rate and rhy thm, no murmurs, rubs, gallops LUNGS: no wheezes, rales, r honchi, good air movement, clear to auscultation bilaterally SKIN: good turgor
--- OUTSIDE RECORDS SUMMARY | 2025-04-20 06:00 | XMS_ITS ---
Author Organization Pete Aguirre MD Address [address] [place] [phone] Care Team Providers Care Outboard Motor Inspector Name Role Phone Pete Aguirre Primary Care Provider Allergies No Known Allergies Results Component Value Reference Range Notes Hemoglobin A1c Reviewed date:04/20/2025 10:02:08 AM Interpretation: Performing Lab: Notes/Report: Hemoglobin A1c 7.2 Glucose, finger stick Reviewed date:04/20/2025 09:56:21 AM Interpretation: Performing Lab: Notes/Report: Value 193 REASON FOR VISIT 3 MO F/U Medications Medication SIG (Take, Route, Frequency, Duration) Notes Start Date End Date Status Valsartan 80 MG TAKE 1 TABLET BY DAVID TH EVERY DAY FOR 30 DAYS Active Januvia 100 MG TAKE 1 TABLET BY DAVID TH EVERY DAY FOR 90 DAYS Active metFORMIN HCl 1000 MG 1 tablet with a me al Orally twice 02/19/2025 Active ProAir Respiclick (albuterol Sulfate Inhailation Powder) 90 mcg 1 to 2 inhailations by mouth every 4 to 6 hours as needed for 30 days 11/07/2018 Not-Taking FreeStyle Lite Test - as directed In Vit ro daily for 90 Active FreeStyle Lancets - as directed twice a day for 90 days 07/16/2020 Active Tamsulosin HCl 0.4 MG 1 capsule Orally O nce a day for 30 days 01/15/2025 Active Fluticasone Propionate 50 MCG/ACT 1 spray in each nostril Nasally Twice a day for 30 day(s) 01/15/2025 Active Rosuvastatin Calcium 40 MG TAKE 1 TABLET BY MOUTH EVERY DAY Active Johnson Low Dose 81 MG 1 tablet Orally Onc e a day Active Magnesium 200 MG 2 tablets with a eitan l Orally Once a day Active Glucosamine Chond Complex/MSM - Orally Active Vitamin D3 1000 UNIT 1 capsule Orally On ce a day Active Vital Signs Blood pressure systolic 102 mm Hg 04/20/20 25 Blood pressure diastolic 60 mm Hg 025 Height 66.5 in 04/20/2025 Weight 139 lbs 04/20/2025 BMI 22.1 kg/m2 04/20/2025 weight is down 5 pounds [facility] 02-19-25 Encounters Encounter Location Date Provider Diagnosis Pete Aguirre MD [address] [place] [address] [place] [phone] 04/20/2025 Pete Aguirre Type 2 diabetes mellitus without complication, without long-term current use of insulin E11.9 and Essential hypertension I10 Assessments Encounter Date Diagnosis (ICD Code) Assessment Notes Treatment Notes Treatment Clinical Notes Section Notes 04/20/2025 Type 2 diabetes mellitus without complication, without long-term current use of insulin (ICD-10 - E11.9) will cnotnue current regiment 04/20/2025 Essential hypertension (ICD-10 - I10) stable, will continue current regiment Plan Of Treatment Medication Medication Name Sig Start Date Stop Date Notes Valsartan 80 MG TAKE 1 TABLET BY DAVID TH EVERY DAY FOR 30 DAYS Januvia 100 MG TAKE 1 TABLET BY DAVID TH EVERY DAY FOR 90 DAYS metFORMIN HCl 1000 MG 1 tablet with a meal Orally twice Treatment Notes Assessment Notes Type 2 diabetes mellitus wit hout complication, without long-term current use of insulin will cnotnue current regiment Essential hypertension stable, will cont inue current regiment Next Appt Details Follow Up: 2 Months, Reason: Provider Name:Pete Miller ier, 08/04/2025 02:30:00 PM, [address] [facility], [address], [place], [place], [phone], Progress Notes * Pierre LEMUSDOB:1960 (65 yo M)Acc No.[id number]:04/20/2025 Progress Notes Patient: Pierre Marshall Provider: Luis Miguel Aguirre MD :1960 A ge:65 Y S ex:Male Date:04/20/2025 [facility] [place] [id number] Subjective: * Chief Complaints: * 3 MO F/U * HPI: S ymptom(s): patient is a 65 [facility]/ has a freestyle moniter. now never below 150/. one hour after breakfast. * ROS: G eneral/Constitutional: Denies C hills. D enies F atigue. D enies F ever. D enies H eadache. E NT: Denies S ore throat. E ndocrine: Denies D ifficulty sleeping. D enies D izziness.?Denies E xcessive sweating. D enies E xcessive thirst. D enies F requent urination. R espiratory: Denies C ough. D enies S hortness of breath at rest. D enies S hortness of breath with exertion. G astrointestinal: Denies D iarrhea. D enies N ausea. * Medical History: * Surgical [...] BY MOUTH EVERY DAY FOR 90 DAYS Rosuvastatin Calcium 40 MG Tablet TAKE 1 TABLET BY MOUTH EVERY DAY metFORMIN HCl 1000 MG Tablet 1 tablet with a meal Orally twice Taking Magnesium 200 MG Tablet 2 tablets [...] MOUTH EVERY DAY FOR 90 DAYS Taking Rosuvastatin Calcium 40 MG Tablet TAKE 1 TABLET BY MOUTH EVERY DAY Taking metFORMIN HCl 1000 MG Tablet 1 tablet with a meal Orally twice Not-Taking/PRNProAir Respiclick (albuterol Sulfate Inhailation Powder) 90 mcg Inhalation Powder 1 to 2 inhailations by mouth every 4 to 6 hours as needed Not-Taking/PRN ProAir Respiclick (albuterol Sulfate Inhailation Powder) 90 mcg Inhalation Powder 1 to 2 inhailations by mouth every 4 to 6 hours as needed DiscontinuedInvokamet 150-1000 MG Tablet TAKE 1 TABLET BY MOUTH TWICE A DAY WITH MEALS ORALLY TWICE A DAY 30 DAYS. NEED INSURANCE Orally Twice a day Medication List reviewed and reconciled with the patientDiscontinued Invokamet 150-1000 MG Tablet TAKE 1 TABLET BY MOUTH TWICE A DAY WITH MEALS ORALLY TWICE A DAY 30 DAYS. NEED INSURANCE Orally Twice a day Medication List reviewed and reconciled with the patient * Allergies: N .K.D.A.yes[Allergies Verified] Objective: * Vitals: H t: 66.5, Wt: 139, BMI:22.1, BP:102/60, Wt-k.05. weight is down 5 pounds since 02-19-25. * Examination: G eneral Examination: GENERAL APPEARANCE: p leasant, well nourished, well developed, in no acute distress, male. HEAD: n ormocephalic. SKIN: g ood turgor. HEART: r egular rate and rhythm, no murmurs, rubs, gallops.? LUNGS: n o wheezes, rales, rhonchi, good air movement, clear to auscultation bilaterally. Assessment: * Assessment: 1. T ype 2 diabetes mellitus without complication, without long-term current use of insulin - E11.9 (Primary) 2 . E ssential hypertension - I10 Plan: * Treatment: Value Reference Range H emoglobin A1c 7.2 ?LAB: Glucose, finger stick (Collection Date & Time - 04/20/2025)* Value Reference Range V alue 193 Notes: will cnotnue current regiment??2.?Essential hypertension? Continue Valsartan Tablet, 80 MG, TAKE 1 TABLET BY MOUTH EVERY DAY FOR 30 DAYS.?? Notes: stable, will continue current regiment?? * Procedure Codes: 8 2947 ASSAY, GLUCOSE, BLOOD QUANT, Modifiers: QW 48376 GLYCATED HEMOGLOBIN TEST, Modifiers: QW * Follow Up: 2 Months * * Sign off status: Completed true * Provider: Luis Miguel Aguirre MD Date: 0 04/20/2025 Generated for Tommie mosley/Oscar/Arnulfoitting on: 0 07/14/2025 01:10 PM EDT History and Physical Notes * HPI (History of Present Illness) Category Sub-Category Detail Notes Category Not es Symptom(s) patient is a 65 yo male here for 3 [facility] visit/ has a freestyle moniter. now never below 150/. one hour after breakfast. Examination Category Sub-Category Detail Notes Category Not es General Examination GENERAL APPEARANCE: pleasant , well nourished, well developed, in no acute distress, male HEAD: normocephalic HEART: regular rate and rhy thm, no murmurs, rubs, gallops LUNGS: no wheezes, rales, r honchi, good air movement, clear to auscultation bilaterally SKIN: good turgor
--- OUTSIDE RECORDS SUMMARY | 2025-05-04 07:10 | XMS_ITS ---
Author Organization Pete Aguirre MD Address [address] [place] [address] [place] [phone] Care Team Providers Care Loom Blower Name Role Phone Pete Aguirre Primary Care Provider [phone] REASON FOR VISIT new med Medications Medication SIG (Take, Route, Frequency, Duration) Notes Start Date End Date Status Dapagliflozin Propanediol 10 MG 1 tablet Orally Once a day for 30 days 05/04/2025 Active Encounters Encounter Location Date Provider Diagnosis Pete Aguirre MD [address] [place] [address] [place] [phone] 05/04/2025 Pete Aguirre Plan Of Treatment Medication Medication Name Sig Start Date Stop Date Notes Dapagliflozin Propanediol 10 MG 1 tablet Orally Once a day for 30 days 05/04/2025 Next Appt Details Provider Name:Pete Miller ier, 08/04/2025 02:30:00 PM, [address] [place] [address], Suite [facility], [place], [place], [phone], Progress Notes * Pierre LEMUSDOB:1960 (65 yo M)Acc No.[id number]:05/04/2025 Patient: Pierre Marshall :1960 A ge:65 Y S ex:Male Address:[address] [place], [address] * Refills Start Dapagliflozin Propanediol Tablet, 10 MG, Orally, 30, 1 tablet, Once a day, 30 days, Refills=5 * true * Date: Generated for Tseringi dimitri/Fabritni/eTransmitting on: 0 07/14/2025 01:09 PM EDT
--- OUTSIDE RECORDS SUMMARY | 2025-05-26 04:57 | XMS_ITS ---
Author Organization Pete Aguirre MD Address [address] [place] [address] [place] [phone] Care Team Providers Care Chemistry Instructor Name Role Phone Pete Aguirre Primary Care Provider [phone] REASON FOR VISIT Med change Medications Medication SIG (Take, Route, Frequency, Duration) Notes Start Date End Date Status Farxiga 10 MG 1 tablet Orally Once a day for 90 days 05/26/2025 Active Encounters Encounter Location Date Provider Diagnosis Pete Aguirre MD [address] [place] [address] [place] [phone] 05/26/2025 Pete Aguirre Plan Of Treatment Medication Medication Name Sig Start Date Stop Date Notes Farxiga 10 MG 1 tablet Orally Once a day for 90 days 05/26 Next Appt Details Provider Name:Pete Miller ier, 08/04/2025 02:30:00 PM, [address] [place] [address], Suite [facility], [place], [place], [phone], Progress Notes * Pierre LEMUSDOB:1960 (65 yo M)Acc No.[id number]:05/26/2025 Patient: Pierre Marshall :1960 A ge:65 Y S ex:Male Address:[address] [place], [address] * Refills Start Farxiga Tablet, 10 MG, Orally, 90 Tablet, 1 tablet, Once a day, 90 days, Refills=5 * true * Date: Generated for Printi ng/Faadelag/eTransmitting on: 0 07/14/2025 01:09 PM EDT
--- OUTSIDE RECORDS SUMMARY | 2025-07-14 03:30 | XMS_ITS ---
Author Organization Pete Aguirre MD Address [address] [place], [place] [phone] Care Team Providers Care Nurse Clinician Name Role Phone Pete Aguirre Primary Care Provider Results Component Value Reference Range Notes Complete Blood Count Auto Di ff (Not yet reviewed by provider) Interpretation: Performing Lab:[facility], [address] [place] [phone] Notes/Report: White Blood Count 4.7 4.8-10.8 X10*3/uL Red Blood Count 4.12 4.60-5.80 X10*6/uL Hemoglobin 12.6 14.0-18.0 g/dl Hematocrit 38.4 42.0-52.0 % Mean Corpuscular Volume 93.2 80.0-98.0 fL Mean Corpuscular Hemoglobin 30.6 27.0-33.0 pg Mean Corpuscular HGB Conc 32.8 31.0-36.0 g/dl Red Cell Distribution Width 14.7 11.0-16.0 % Platelet Count 239 160-400 X10*3/uL Mean Platelet Volume 10.8 9.4-12.4 fL Neutrophils Percent Auto 55.0 45-73 % Imm Gran Pct Auto 0.2 0.0-0.4 % Lymphocytes Percent Auto 30.1 20-40 % Monocytes Percent Auto 11.5 2-11 % Eosinophils Percent Auto 1.5 0-4 % Basophils Percent Auto 1.7 0-2 % NRBC Pct Auto 0.0 0.0-0.2 /100WBC Neutrophils Absolute Auto 2.6 2.0-8.3 x10*3/u L Imm Gran Abs Auto 0.01 0.00-0.03 X10*3/uL Lymphocytes Absolute Auto 1.4 1.2-4.9 X10*3/u L Monocytes Absolute Auto 0.5 0.1-1.2 X10*3/uL Eosinophils Absolute Auto 0.1 0.0-0.4 X10*3/u L Basophils Absolute Auto 0.1 0.0-0.2 X10*3/uL NRBC Abs Auto 0.000 0.0-0.012 X10*3/uL UA ClnCatch+Micro w/rflx Cul t (Not yet reviewed by provider) Interpretation: Performing Lab:[facility], [address] [place] [phone] Notes/Report: Urine, Clean Catch Color Urine Yellow Appearance Urine Clear PH 5.5 5.0-9.0 Glucose Urine UA >=1000 Negative mg/dL Urine Blood Negative Negative Specific Gallion - Urine >= 1.030 1.005-1.025 Urine Protein Negative Neg-Trace mg/dL Urine Ketones 15 Negative mg/dL Nitrite Urine Negative Negative Leukocyte Esterase Urine Negative Negative RBC Urine 0-2 0-2 /HPF WBC Urine 0-5 0-5 /HPF Squamous Epithelial Cell Urine 0-2 0-2 /HPF Bacteria Urine None Seen None Seen Hyaline Casts Urine 0-2 0-2 /LPF Comprehensive [place]. Panel Fa st Reviewed date:07/14/2025 12:46:06 PM Interpretation: Performing Lab:[facility], [address] [place] [phone] Notes/Report: Sodium 142 135-145 mmol/L Potassium 4.2 3.3-5.1 mmol/L Chloride 108 96-108 mmol/L Carbon Dioxide 25 22-29 mmol/L Anion Gap 13 12-20 Blood Urea Nitrogen 25 9-16 mg/dL Creatinine 0.73 0.5-1.4 mg/dL Estimated Glomerular Filt Rate > 60 Chronic Kidney Disease: Estimated GFR < 60 mL/min/1.73m2 Severe Kidney Disease: Estimated GFR < 15 mL/min/1.73m2 Glucose Fasting 102 60-99 mg/dL A fasting glucose from 100-125 mg/dl is considered impaired (pre-diabetes). Calcium 9.2 8.4-10.2 mg/dL Bilirubin Total 0.7 0.0-1.0 mg/dL Aspartate Amino Transferase 29 5-37 U/L Alanine Aminotransferase 25 0-40 U/L Total Protein 6.7 6.5-8.0 g/dL Albumin Level 4.4 3.5-5.0 g/dL Alkaline Phosphatase 68 39-117 U/L Lipid Panel Reviewed date:07/14/2025 12:25:01 PM Interpretation: Performing Lab:[address] [phone] Notes/Report: Triglycerides 70 <150 mg/dL Desirable Triglyceride: less than 150 mg/dL Borderline High Triglyceride 150-199 mg/dL High Triglyceride: 200-499 mg/dL Very High Triglyceride: greater than or equal to 5OO mg/dL Cholesterol 218 <200 mg/dL Desirable Cholesterol: less than 200 mg/dL Borderline High Cholesterol: 200-239 mg/dL High Cholesterol: greater than 239 mg/dL LDL Cholesterol Calculated 129 <100 mg/dL Desirable LDL: less than 100 mg/dL Near Optimal/Above Optimal LDL: 110-129 mg/dL Borderline High LDL: 130-159 mg/dL High LDL: 160-189 mg/dL Very High LDL: greater than or equal to 190 mg/dL HDL Cholesterol 75 >40 mg/dL Desirable HDL: greater than 40 mg/dL Note: This HDL assay may give artificially low results in patients with liver disease. PSA,Total (Free>4and<10) Reviewed date:07/14/2025 12:24:41 PM Interpretation: Performing Lab:[address] [phone] Notes/Report: PSA,Total (Free>4and<10) 1.44 0.00-4.00 ng/mL A Free PSA was not performed: The percentage of Free PSA can be used to enhance the differentiation of prostate cancer from benign prostatic disease in subjects whose PSA levels are between 4.0 and 10.0 ng/mL. For subjects whose PSA levels are below 4.0 or above 10.0 ng/mL, the risk of prostate cancer is determined on the basis of the PSA alone. Therefore the % Free PSA is recommended only for those subjects whose PSA levels are between 4.0 and 10.0 ng/mL. PSA methodology: Stauffer Alinity i Chemiluminescent Microparticle Immunoassay (CMIA) Microalbumin, Random Reviewed date:07/14/2025 12:25:15 PM Interpretation: Performing Lab:[facility], [address] [place] [phone] Notes/Report: Creatinine Urine 48.99 Microalbumin Urine 6.0 Microalbum/Creatinine Ratio Ur 12.2 <30 ug/mg cr Albumin/Creatinine Ratio Reference Ranges: Normal: < 30 ug/mg creatinine Microalbuminuria: 30 - 300 ug/mg creatinine Clinical Albuminuria: > 300 ug/mg creatinine Hemoglobin A1c Reviewed date:07/14/2025 12:27:05 PM Interpretation: Performing Lab:[facility], [address] [place] [phone] Notes/Report: Hemoglobin A1c % 7.5 <6.0 % Hemoglobin A1C Reference Range Adults: 4.8 - 6.0 % Non diabetic: < 6.0 % Goal: < 7.0 % Additional Action Suggested: > 8.0 % Note: Hemoglobin A1c results are invalid for patients with abnormal amounts of HbF. Blood transfusions may impact the HbA1c concentration in the patient sample. Estimated Average Glucose 169 eAG = Estimated average glucose which is %A1C expressed as average glucose, using the formula of the L4D-Pcuzutk Average Glucose study (ADAG), Diabetes Care, Vol.31,#8, May. 2007 REASON FOR VISIT yearly fasting labs Immunizations Vaccine Route Administration Date Status Comme nts Fluarix Quadrivalent - 150 IM Intramuscular 07/14/2025 Adm inistered Encounters Encounter Location Date Provider Diagnosis Pete Aguirre MD [address] [place] [address] [address] [place], [place] [phone] 07/14/2025 Pete Aguirre Blood tests for rout ine general physical examination Z00.00 ; Encounter for administration of vaccine Z23 ; Type 2 diabetes mellitus without complication, without long-term current use of insulin E11.9 ; Essential hypertension I10 and Hypercholesterolemia E78.00 Assessments Encounter Date Diagnosis (ICD Code) Assessment Notes Treatment Notes Treatment Clinical Notes Section Notes 07/14/2025 [address] tests for rout ine general physical examination (ICD-10 - Z00.00) l 07/14/2025 Encounter for administration of vaccine (ICD-10 - Z23) l 07/14/2025 Type 2 diabetes misti itus without complication, without long-term current use of insulin (ICD-10 - E11.9) l 07/14/2025 Essential hypertensi on (ICD-10 - I10) l 07/14/2025 Hypercholesterolemia (ICD-10 - E78.00) l Plan Of Treatment Pending Test Test Name Order Date Complete Blood Count Auto Diff UA ClnCatch+Micro w/rflx Cult 07/14/2025 Next Appt Details Provider Name:Pete Saundra Miller ier, 08/04/2025 02:30:00 PM, [address], [address], [place], [place], [phone], Progress Notes * Pierre LEMUSDOB:1960 (65 yo M)Acc No.[id number]:07/14/2025 Progress Note Patient: Pierre Marshall Provider: Lui sMiguel Aguirre MD :1960 A ge:65 Y S ex:Male Date:07/14/2025 Address:[address] [place], [place] [phone] Subjective: * Chief Complaints: * 1 . Yearly fasting labs. * Medical History: Objective: * Vitals: Assessment: * Assessment: 1. E ncounter for administration of vaccine - Z23 (Primary) 2 . B lood tests for routine general physical examination - Z00.00 3 . T ype 2 diabetes mellitus without complication, without long-term current use of insulin - E11.9 4 . E ssential hypertension - I10 5 . H ypercholesterolemia - E78.00 l Plan: * Treatment: 2. T ype 2 diabetes mellitus without complication, without long-term current use of insulin L AB: Complete Blood Count Auto Diff (Collection Date & Time - 07/14/2025 07:30 AM) L AB: UA ClnCatch+Micro w/rflx Cult (Collection Date & Time - 07/14/2025 07:30 AM) L AB: Comprehensive [place]. Panel Fast (Collection Date & Time - 07/14/2025 07:30 AM) L AB: Lipid Panel (Collection Date & Time - 07/14/2025 07:30 AM) L AB: PSA,Total (Free>4and<10) (Collection Date & Time - 07/14/2025 07:30 AM) L AB: Microalbumin, Random (Collection Date & Time - 07/14/2025 07:30 AM) L AB: Hemoglobin A1c (Collection Date & Time - 07/14/2025 07:30 AM) 3. E ssential hypertension L AB: Complete Blood Count Auto Diff (Collection Date & Time - 07/14/2025 07:30 AM) L AB: UA ClnCatch+Micro w/rflx Cult (Collection Date & Time - 07/14/2025 07:30 AM) L AB: Comprehensive [place]. Panel Fast (Collection Date & Time - 07/14/2025 07:30 AM) L AB: Lipid Panel (Collection Date & Time - 07/14/2025 07:30 AM) L AB: PSA,Total (Free>4and<10) (Collection Date & Time - 07/14/2025 07:30 AM) L AB: Microalbumin, Random (Collection Date & Time - 07/14/2025 07:30 AM) L AB: Hemoglobin A1c (Collection Date & Time - 07/14/2025 07:30 AM) 4. H ypercholesterolemia L AB: Complete Blood Count Auto Diff (Collection Date & Time - 07/14/2025 07:30 AM) L AB: UA ClnCatch+Micro w/rflx Cult (Collection Date & Time - 07/14/2025 07:30 AM) L AB: Comprehensive [place]. Panel Fast (Collection Date & Time - 07/14/2025 07:30 AM) L AB: Lipid Panel (Collection Date & Time - 07/14/2025 07:30 AM) L AB: PSA,Total (Free>4and<10) (Collection Date & Time - 07/14/2025 07:30 AM) L AB: Microalbumin, Random (Collection Date & Time - 07/14/2025 07:30 AM) L AB: Hemoglobin A1c (Collection Date & Time - 07/14/2025 07:30 AM) * Immunizations: Fluarix Quadrivalent - 150 : 0.5 mL (Dose No:1) (Route: Intramuscular) given by Sara Mcfarlane , Office Staff on Left Deltoid * Procedure Codes: 3 6415 VENIPUNCT, ROUTINE*, 90862 FLU VACCINE NO PRESERV 3 & >, G0008 ADMN FLU VAC NO FEE SCHED SAME DAY * * The named appointment provid er may or may not be the originator of this progress note, and it is not deemed complete until electronically signed by the appointment provider. Sign off status: Pending * Provider: Luis Miguel Aguirre MD Date: 07/14/2025 Generated for Tommie mosley/Oscar/Arnulfoitting on: 07/14/2025 01:10 PM EDT
[2025-07-14 11:22] LABS: Hemoglobin A1C 192.7205 umol/L; Total Hemoglobin (HGBA1C) 3297.4487 umol/L
[2025-07-14 11:40] LABS: Microalbum/Creatinine Ratio Ur 12.2 ug/mg cr (<30)
[2025-07-14 11:45] LABS: PSA,Total (Free>4and<10) 1.44 ng/mL (0.00-4.00)
[2025-07-14 12:21] LABS: Alanine Aminotransferase 25 U/L (0-40); Albumin Level 4.4 g/dL (3.5-5.0); Alkaline Phosphatase 68 U/L (39-117); Anion Gap 13 (12-20); Aspartate Amino Transferase 29 U/L (5-37); Blood Urea Nitrogen 25 mg/dL (9-16); Calcium 9.2 mg/dL (8.4-10.2); Carbon Dioxide 25 mmol/L (22-29); Chloride 108 mmol/L (96-108); Cholesterol 218 mg/dL (<200); Estimated Glomerular Filt Rate > 60; HDL Cholesterol 75 mg/dL (>40); Potassium 4.2 mmol/L (3.3-5.1); Sodium 142 mmol/L (135-145); Total Protein 6.7 g/dL (6.5-8.0); Triglycerides 70 mg/dL (<150)
--- OUTSIDE RECORDS SUMMARY | 2025-07-14 13:10 | XMS_ITS | Patient Health Record ---
Author Organization Pete Aguirre MD Address [address] [place], [place] [id number] Care Team Providers Care Heating Worker Name Role Phone Pete Aguirre Primary Care Provider Allergies No Known Allergies Results Component Value Reference Range Notes Hemoglobin A1c Reviewed date:04/20/2025 10:02:08 AM Interpretation: Performing Lab: Notes/Report: Hemoglobin A1c 7.2 Liver Panel Reviewed date:01/08/2025 12:57:27 PM Interpretation: Performing Lab:[facility], [address] [place] [phone] Notes/Report: Bilirubin Total 0.6 0.0-1.0 mg/dL Bilirubin Direct 0.2 0.0-0.5 mg/dL Aspartate Amino Transferase 30 5-37 U/L Alanine Aminotransferase 23 0-40 U/L Total Protein 7.8 6.5-8.0 g/dL Albumin Level 4.4 3.5-5.0 g/dL Alkaline Phosphatase 94 39-117 U/L Glucose Fasting Reviewed date:01/08/2025 12:57:35 PM Interpretation: Performing Lab:[facility], [address] [place] [phone] Notes/Report: Glucose Fasting 119 60-99 mg/dL A fasting glucose from 100-125 mg/dl is considered impaired (pre-diabetes). Lipid Panel with Reflex Reviewed date:01/08/2025 12:57:11 PM Interpretation: Performing Lab:[facility], [address] [place] [phone] Notes/Report: Triglycerides 121 <150 mg/dL Desirable Triglyceride: less than 150 mg/dL Borderline High Triglyceride 150-199 mg/dL High Triglyceride: 200-499 mg/dL Very High Triglyceride: greater than or equal to 5OO mg/dL Cholesterol 221 <200 mg/dL Desirable Cholesterol: less than 200 mg/dL Borderline High Cholesterol: 200-239 mg/dL High Cholesterol: greater than 239 mg/dL LDL Cholesterol Calculated 138 <100 mg/dL Desirable LDL: less than 100 mg/dL Near Optimal/Above Optimal LDL: 110-129 mg/dL Borderline High LDL: 130-159 mg/dL High LDL: 160-189 mg/dL Very High LDL: greater than or equal to 190 mg/dL HDL Cholesterol 59 >40 mg/dL Desirable HDL: greater than 40 mg/dL Note: This HDL assay may give artificially low results in patients with liver disease. Hemoglobin A1c Reviewed date:01/08/2025 12:19:08 PM Interpretation: Performing Lab:[address] [phone] Notes/Report: Hemoglobin A1c % 7.5 <6.0 % [...] average glucose, using the formula of the [id number] Average Glucose study (ADAG), Diabetes Care, Vol.31,#8, May. 2007 Complete Blood Count Auto Di ff (Not yet reviewed by provider) Interpretation: Performing Lab:[address] [phone] Notes/Report: White Blood Count 4.7 4.8-10.8 X10*3/uL [...] (Not yet reviewed by provider) Interpretation: Performing Lab:[address] [phone] Notes/Report: Urine, Clean Catch Color Urine Yellow Appearance Urine Clear PH 5.5 5.0-9.0 Glucose Urine UA >=1000 Negative mg/dL Urine Blood Negative Negative Specific [place] - Urine >= 1.030 1.005-1.025 Urine Protein Negative Neg-Trace mg/dL Urine Ketones 15 Negative mg/dL Nitrite Urine Negative Negative Leukocyte Esterase Urine Negative Negative RBC Urine 0-2 0-2 /HPF WBC Urine 0-5 0-5 /HPF Squamous Epithelial Cell Urine 0-2 0-2 /HPF Bacteria Urine None Seen None Seen Hyaline Casts Urine 0-2 0-2 /LPF Comprehensive [place]. Panel Fa st Reviewed date:07/14/2025 12:46:06 PM Interpretation: Performing Lab:[address] [phone] Notes/Report: Sodium 142 135-145 mmol/L Potassium 4.2 [...] Panel Reviewed date:07/14/2025 12:25:01 PM Interpretation: Performing Lab:[facility], [address] [place] [phone] Notes/Report: Triglycerides 70 <150 mg/dL Desirable Triglyceride: [...] (Free>4and<10) Reviewed date:07/14/2025 12:24:41 PM Interpretation: Performing Lab:[facility], [address] [place] [phone] Notes/Report: PSA,Total (Free>4and<10) 1.44 0.00-4.00 ng/mL A [...] Random Reviewed date:07/14/2025 12:25:15 PM Interpretation: Performing Lab:[address] [phone] Notes/Report: Creatinine Urine 48.99 Microalbumin Urine 6.0 Microalbum/Creatinine Ratio Ur 12.2 <30 ug/mg cr Albumin/Creatinine Ratio Reference Ranges: Normal: < 30 ug/mg creatinine Microalbuminuria: 30 - 300 ug/mg creatinine Clinical Albuminuria: > 300 ug/mg creatinine Hemoglobin A1c Reviewed date:07/14/2025 12:27:05 PM Interpretation: Performing Lab:[address] [phone] Notes/Report: Hemoglobin A1c % 7.5 <6.0 % [...] average glucose, using the formula of the F3A-Dcacssm Average Glucose study (ADAG), Diabetes Care, Vol.31,#8, 2007 Glucose, finger stick Reviewed date:02/19/2025 01:25:55 PM Interpretation: Performing Lab: Notes/Report: Value 158 Glucose, finger stick Reviewed date:04/20/2025 09:56:21 AM Interpretation: Performing Lab: Notes/Report: Value 193 Hold Gold Reviewed date:01/08/2025 12:17:38 PM Interpretation: Performing Lab:[facility], [address], [place] [address] Notes/Report: Hold Gold See Note Specimen held untested for 24 hours; Call to request Chemistry testing. Reason For Referral No Information Medications Medication SIG (Take, Route, Frequency, Duration) Notes Start Date End Date Status Johnson Low Dose 81 MG 1 tablet Orally Onc e a day Active FreeStyle Lite Test - as directed In Vit ro daily for 90 Active Valsartan 80 MG TAKE 1 TABLET BY DAVID TH EVERY DAY FOR 30 DAYS Active Dapagliflozin Propanediol 10 MG 1 tablet Orally Once a day for 30 days 05/04/2025 Active Farxiga 10 MG 1 tablet Orally Once a day for 90 days 05/26/2025 Active FreeStyle Lancets - as directed twice a day for 90 days 07/16/2020 Active Januvia 100 MG TAKE 1 TABLET BY DAVID TH EVERY DAY FOR 90 DAYS Active Tamsulosin HCl 0.4 MG 1 capsule Orally O nce a day for 30 days 01/15/2025 Active metFORMIN HCl 1000 MG 1 tablet with a me al Orally twice 02/19/2025 Active Fluticasone Propionate 50 MCG/ACT 1 spray in each nostril Nasally Twice a day for 30 day(s) 01/15/2025 Active Rosuvastatin Calcium 40 MG TAKE 1 TABLET BY MOUTH EVERY DAY Active Magnesium 200 MG 2 tablets with a eitan l Orally Once a day Active Glucosamine Chond Complex/MSM - Orally Active ProAir Respiclick (albuterol Sulfate Inhailation Powder) 90 mcg 1 to 2 inhailations by mouth every 4 to 6 hours as needed for 30 days 11/07/2018 Not-Taking Vitamin D3 1000 UNIT 1 capsule Orally On ce a day Active Immunizations Vaccine Route Administration Date Status Comme nts Flu Vaccine Unknown 07/30/2017 Administered pt had the flu vaccine with his old pcp. Fluarix Quadrivalent IM Intramuscular 09/23/2018 Administe red TDaP IM Intramuscular 11/28/2018 Administered pt was given the vaccine at [facility] [place] Tetanus Unknown 11/28/2018 Administered Fluarix Quadrivalent IM Intramuscular 10/06/2019 Administe red Shingrix Unknown 09/24/2020 Administered [facility] Fluarix Quadrivalent Unknown 09/06/2020 Administered S PPSV23 (Pnemovax) IM Intramuscular 04/18/2021 Administered SARS-COV-2 Pfizer Unknown 12/29/2020 Administered SARS-COV-2 Pfizer Unknown 01/19/2021 Administered Fluarix Quadrivalent IM Intramuscular 09/26/2021 Administe red Fluarix Quadrivalent IM Intramuscular 11/02/2022 Administe red Fluarix Quadrivalent - 150 IM Intramuscular 07/10/2024 Administered Fluarix Quadrivalent - 150 IM Intramuscular 07/14/2025 Administered Social History Tobacco Use: Social History Observation Description Date Details (start date - stop date) Never Smoker NA - NA Tobacco Use/Smoking Question Answer Notes Patient is a nonsmoker Additional Findings: Tobacco Non-User Cu rrent non-smoker, currently using no form of tobacco Alcohol Screen Question Answer Notes Did you have a drink containing alcohol in the p ast year? No Points 0 Interpretation Negative Problems Problem Type SNOMED Code ICD Code Onset Dates Problem Status W/U Status Risk Notes Problem 08631510 Essential hypert ension (I10) Active confirmed Problem 575992858 Low blood sugar (E16.2) Active confir med Problem 37840161 Hypercholesterol emia (E78.00) Active confirmed Problem 833326342 Type 2 diabetes mellitus without complication, without long-term current use of insulin (E11.9) Active confirmed Vital Signs Blood pressure diastolic 60 mm Hg 04/20/2025 mehrdad ght is down 5 pounds since 02-19-25 Height 66.5 in 04/20/2025 weight is down 5 pounds since 02-19-25 Blood pressure systolic 102 mm Hg 04/20/2025 weig ht is down 5 pounds since 02-19-25 Weight 139 lbs 04/20/2025 weight is down 5 pounds since 02-19-25 BMI 22.1 kg/m2 04/20/2025 weight is down 5 pounds since 02-19-25 Encounters Encounter Location Date Provider Diagnosis Pete Aguirre MD [address] [place] [id number] 01/08/2025 Pete Aguirre Type 2 diabetes misti itus without complication, without long-term current use of insulin E11.9 and Hypercholesterolemia E78.00 Pete Aguirre MD [address] [place] [id number] 07/14/2025 Pete Aguirre Blood tests for rout ine general physical examination Z00.00 ; Encounter for administration of vaccine Z23 ; Type 2 diabetes mellitus without complication, without long-term current use of insulin E11.9 ; Essential hypertension I10 and Hypercholesterolemia E78.00 Pete Aguirre MD [address] [place] [id number] 07/17/2024 Pete Aguirre Type 2 diabetes misti itus without complication, without long-term current use of insulin E11.9 ; Encounter for general adult medical examination without abnormal findings Z00.00 ; Hypercholesterolemia E78.00 and Essential hypertension I10 Pete Aguirre MD [address] [place] [id number] 01/15/2025 Pete Aguirre Type 2 diabetes misti itus without complication, without long-term current use of insulin E11.9 ; Essential hypertension I10 ; Prostatitis N41.9 ; Eustachian tube disorder H69.90 and Hypercholesterolemia E78.00 Pete Aguirre MD [address] [place] [id number] 02/19/2025 Pete Aguirre Type 2 diabetes misti itus without complication, without long-term current use of insulin E11.9 Pete Aguirre MD [address] [place] [address] [address] [id number] 04/20/2025 Pete Aguirre Type 2 diabetes misti itus without complication, without long-term current use of insulin E11.9 and Essential hypertension I10 Pete Aguirre MD [address] [place] [address] [address] [id number] 10/28/2024 Pete Aguirre MD [address] [id number] 11/17/2024 Pete Aguirre MD [address] [id number] 05/04/2025 Pete Aguirre MD [address] [place] [id number] 05/26/2025 Pete Aguirre Assessments Encounter Date Diagnosis (ICD Code) Assessment Notes Treatment Notes Treatment Clinical Notes Section Notes 01/08/2025 Type 2 diabetes mellitus without complication, without long-term current use of insulin (ICD-10 - E11.9) 07/14/[address] ine general physical examination (ICD-10 - Z00.00) l 07/14/2025 Encounter for administration of vaccine (ICD-10 - Z23) l 07/17/2024 Type 2 diabetes mellitus without complication, without long-term current use of insulin (ICD-10 - E11.9) will continue current regiment, advised on better dietary control 07/17/2024 Encounter for genera l adult medical examination without abnormal findings (ICD-10 - Z00.00) Labs reviewed and discussed with patient 01/15/2025 Type 2 diabetes mellitus without complication, without long-term current use of insulin (ICD-10 - E11.9) doing much better with the cgm and watching food better, will cntinue current regiment and will continue to monitor 01/15/2025 Essential hypertensi on (ICD-10 - I10) doing well, will continue current regiment 02/19/2025 Type 2 diabetes mellitus without complication, without long-term current use of insulin (ICD-10 - E11.9) patient verbalized understanding of medication and directions for use 04/20/2025 Type 2 diabetes mellitus without complication, without long-term current use of insulin (ICD-10 - E11.9) will cnotnue current regiment 01/08/2025 Hypercholesterolemia (ICD-10 - E78.00) 07/14/2025 Type 2 diabetes mellitus without complication, without long-term current use of insulin (ICD-10 - E11.9) l 07/17/2024 Hypercholesterolemia (ICD-10 - E78.00) doing well on meds, will continu current regiment 01/15/2025 Prostatitis (ICD-10 - N41.9) patient verbalized understanding ofmedication and directions for use 04/20/2025 Essential hypertensi on (ICD-10 - I10) stable, will continue current regiment 07/14/2025 Essential hypertensi on (ICD-10 - I10) l 07/17/2024 Essential hypertensi on (ICD-10 - I10) well controlled, will continue current regiment and will contnue to monitor 01/15/2025 Eustachian tube disorder (ICD-10 - H69.90) patient verbalized understanding ofmedication and directions for use 07/14/2025 Hypercholesterolemia (ICD-10 - E78.00) l 01/15/2025 Hypercholesterolemia (ICD-10 - E78.00) stable, will continue curent regiment Plan Of Treatment Pending Test Test Name Order Date Complete Blood Count Auto Diff 5 Urinalysis 04/11/2021 UA ClnCatch+Micro w/rflx Cult 07/14/2025 Next Appt Details Provider Name:Pete Miller ier, 08/04/2025 02:30:00 PM, [address] [place] [address], [address], [place], [place], [id number], Insurance Providers Payer Name Payer Address Payer Phone Subscriber Number Group Number Insured Name Patient Relationship to Insured Coverage Start Date Coverage End Date [facility] are [employer] [address] [address] [place] [address] [id number] Pierre Negro Self - patient is the insured 5 Medical (General) History Medical History History ICD Code colonoscopy 11/2010 - repeat in 10 years: colonoscopy 12/13 due 5 yrs
--- OUTSIDE RECORDS SUMMARY | 2025-07-14 13:10 | XMS_ITS | Patient Health Record ---
Author Organization [facility] Address [address] [place] [address] Care Team Providers Care Casino Attendant Name Role Phone Carla BANG, Pete Primary Care Provider Francisco Correia Unavailable [phone] Allergies No Known Allergies Reason For Referral No Information Medications Medication SIG (Take, Route, Frequency, Duration) Notes Start Date End Date Status Rosuvastatin Calcium 40 MG Oral for 90 Active Januvia 50 MG Oral for 30 Acti ve Vitamin B12 Active Aspirin 81 Active Valsartan 80 MG Oral for 90 Ac tive Invokamet 150-1000 MG Oral for 90 Active Glucosamine Active Magnesium Active Immunizations Vaccine Route Administration Date Status Comme nts Influenza Unknown 08/22/2021 Administered Social History Tobacco Use: Social History Observation Description Date Details (start date - stop date) Never Smoker NA - NA Tobacco Use/Smoking Question Answer Notes Patient is a nonsmoker Alcohol Screen Question Answer Notes Did you have a drink containing alcohol in the p ast year? No Points 0 Interpretation Negative Section Notes: Nonsmoker; no sig alcohol Came from [facility] at age 8 Problems Problem Type SNOMED Code ICD Code Onset Dates Problem Status W/U Status Risk Notes Problem 464291169 Encounter for screening for malignant neoplasm of colon (Z12.11) Active confirmed Problem 836664987079428 Preprocedural examination (Z01.818) Active confirmed Problem 072345740617955 Aspirin long-ter m use (Z79.82) Active confirmed Problem Diverticulosis of colon (455130176) Diverticulosis of colon (K57.30) Active confirmed Plan Of Treatment Future Test Test Name Order Date COLONOSCOPY 11/03/2021 Insurance Providers Payer Name Payer Address Payer Phone Subscriber Number Group Number Insured Name Patient Relationship to Insured Coverage Start Date Coverage End Date [facility] [address] [place] [address] [phone] [id number] SAMANTHA LEMUS Self - patient is the insured Medical (General) History Medical History History ICD Code Kidney stones NIDDM Hypertension Neg. colonoscopy age 50 Hyperlipidemia Denies GA,CVA,Lung disease,renal disease Surgical History Surgery Date(Month/Year)
--- OUTSIDE RECORDS SUMMARY | 2025-07-14 13:10 | XMS_ITS | Clinical Summary ---
Author Organization [facility] Address [address] [facility] [address] [place] [id number] Phone Care Team Providers Care Rand Tacker Name Role Phone Pete Aguirre MD Primary Care Provider Allergies No known active allergies Medications aspirin (WINSTON LOW DOSE ASPIRIN) 81 MG EC tablet 1 tablet. Active alogliptin (NESINA) 12.5 mg tablet 1 tablet. Active canagliflozin-m etFORMIN (INVOKAMET) 150-1,000 mg Tab Take 1 tablet by mouth 2 (two) times a day with meals. 02/27/2022 Active calcium carb-vitamin D3-vit K2 600 mg-1,000 unit-90 mcg Tab 1 capsule. Act genevieve magnesium oxide 200 mg magnesium Chew 2 tablets with a meal Active rosuvastatin (CRESTOR) 40 MG tablet Take 1 tablet by mouth daily. 01/05/2022 Active SITagliptin phosphate (JANUVIA) 100 MG tablet Take 1 tablet by mouth daily. Active valsartan (DIOVAN) 80 MG tablet TAKE 1 TABLET BY MOUTH EVERY DAY FOR 30 DAYS 01/09/2022 Active Active Problems No known active problems Social History Tobacco Use Types Packs/Day Years Used Date Smoking Tobacco: Never Smokeless Tobacco: Never Tobacco Cessation:Counseling Given: Not Answered Education Answer Date Recorded Are you interested [...] on file Sexual Orientation Not on file Last Filed Vital Signs Vital Sign Reading Time Taken Comments Blood Pressure 119/78 04/17/2023 7:28 PM EDT Pulse 79 04/17/2023 7:28 PM EDT Temperature 36.5 C (97.7 F) 04/17/2023 7:28 PM EDT Respiratory Rate - - Oxygen Saturation 98% 04/17/2023 7:28 PM EDT Inhaled Oxygen Concentration - - Weight 64.9 kg (143 lb) 04/17/2023 7:28 PM EDT Height 167.6 cm (5' 6 ) 04/17/2023 7:28 PM EDT Body Mass Index 23.08 04/17/2023 7:28 PM EDT Plan of Treatment Health Maintenance Due Date Last Done Comments CREATININE LEVEL 1960 LIPID PANEL 1960 POTASSIUM LEVEL 1960 DEPRESSION SCREENING 1972 HEPATITIS C SCREENING 02/23/1978 HIV ONE-TIME SCREENING (18-65 YEARS) 02/23/1978 COLOGUARD 02/23/2005 COLONOSCOPY 02/23/2005 FIT TEST 02/23/2005 SIGMOIDOSCOPY 02/23/2005 VIRTUAL COLONOSCOPY 02/23/2005 RSV VACCINE (1 - Risk 60-74 years 1-dose series) 2020 ZOSTER VACCINES (2 of 2) 11/19/2020 09/24/2020 PNEUMOCOCCAL VACCINES (50+ years) (2 of 2 - PCV) 04/18/2022 04/18/2021 COLORECTAL CANCER SCREENING 05/02/2023 FOBT 05/02/2023 05/02/2022, 03/23, 04/07/2019, Additional history exists INFLUENZA VACCINE (#1) 2025 3, 11/02/2022, 09/26/2021, Additional history exists COVID-19 VACCINE (3 - 2024- season) 2025 01/19/2021, 12/29/2020 Adult Td,Tdap Booster 11/28/2028 11/28/2018 SMOKING STATUS SCREENING (Once After 26 Yrs) Completed 04/18/2023 HEPATITIS A VACCINES Aged Out No long er eligible based on patient's age to complete this topic HIB VACCINES Aged Out No longer eligi ble based on patient's age to complete this topic MENINGOCOCCAL VACCINES (ACWY) Aged Out No longer eligible based on patient's age to complete this topic MENINGOCOCCAL VACCINES (B) Aged Out N o longer eligible based on patient's age to complete this topic Medical Devices Not on file Insurance [facility] Care Teams Rand Tacker Relationship Specialty Start Date End Date Pete Aguirre MD [address] [place] [address] [place] [address] PCP - General Internal Medicine 04/17/23 Additional Source Comments The information contained in this document represents components of the legal health record. It is not the complete legal health record.[facility]
== END 2025-07-14 10:44 | disposition home or self-care (01) ==
LOC: HO.LNP 10:43
PROVIDERS: Visit Provider Internal Medicine
DX: Z00.00 Encounter for general adult medical examination without abnormal findings (principal); Z12.5 Encounter for screening for malignant neoplasm of prostate; I10 Essential (primary) hypertension; E11.9 Type 2 diabetes mellitus without complications; E78.00 Pure hypercholesterolemia, unspecified
CPT/HCPCS: 80053; 80061; 81001; 82043; 82570; 83036; 84153; 85025